=== PATIENT | female | born 1960 | race Caucasian/White ===

== ENCOUNTER → 2020-12-11 | Outpatient (CLI) | payer BC, OTHER ==
[~2020-12-11] MED LIST: FISH OIL 1,0001 EACH PO; IBUPROFEN600 MG PO; MAG GLYCINATE100 MG PO; MULTIVITAMINS1 EAC1 PO; PROBIOTIC1 EAC1 PO; PROTANDIM PO; VITAMIN D35000 UNIT PO; ZOFRAN4 MG PO
[2020-12-11 08:28] LABS: HEMOGLOBIN 13.9 gm/dl (12.3-15.3); RED BLOOD COUNT 4.6 M/UL (4.00-5.10)
[2020-12-11 08:56] LABS: BUN/CREATININE RATIO 18 (0-10)
[2020-12-12 08:14] LABS: ESTRADIOL <5.0 pg/mL (.); PROGESTERONE 0.2 ng/mL (.); VITAMIN D, 25-HYDROXY 67.8 ng/mL (30.0-100.0)
[2020-12-12 18:08] LABS: SARS COV-2 IGM AB Negative (Negative)
[2020-12-13 02:09] LABS: SARS COV-2 IGG AB Negative (Negative)
[2020-12-13 12:14] LABS: CHOLESTEROL, TOTAL 208 mg/dL (100-199); HDL SIZE 9.5 nm (>=9.2); HDL-C 69 mg/dL (>39); HDL-P (TOTAL) 39.1 umol/L (>=30.5); LARGE HDL-P 10.9 umol/L (>=4.8); LARGE VLDL-P 1.7 nmol/L (<=2.7); LDL SIZE 21.5 nm (>20.5); LDL SIZE 21.5 nm (>=20.8); LDL-C 125 mg/dL (0-99); LDL-P 1542 nmol/L (<1000); LP-IR SCORE 30 (<=45); SMALL LDL-P 507 nmol/L (<=527); TRIGLYCERIDES 80 mg/dL (0-149); VLDL SIZE 52.8 nm (<=46.6)
[2020-12-13 14:14] LABS: TESTOSTERONE, SERUM 5 ng/dL (3-41)
[2020-12-13 16:14] LABS: SARS COV-2 IGA AB Negative (Negative)
== END ==
LOC: LAB 07:11
PROVIDERS: Nurse Practitioner Family
DX: Z13.1 Encounter for screening for diabetes mellitus (principal); Z13.220 Encounter for screening for lipoid disorders; E78.00 Pure hypercholesterolemia, unspecified; R78.79 Finding of abnormal level of heavy metals in blood; R79.0 Abnormal level of blood mineral; K59.00 Constipation, unspecified; R53.83 Other fatigue; E72.10 Disorders of sulfur-bearing amino-acid metabolism, unspecified; E34.9 Endocrine disorder, unspecified; E53.8 Deficiency of other specified B group vitamins; E55.9 Vitamin D deficiency, unspecified; Z79.890 Hormone replacement therapy; Z01.84 Encounter for antibody response examination
CPT/HCPCS: 36415; 80053; 80061; 82175; 82300; 82607; 82670; 82679; 83036; 83655; 83825; 84144; 84207; 84402; 84403; 84439; 84443; 84481; 84630; 85027; 86140; 86769

== ENCOUNTER → 2021-01-26 | Outpatient (CLI) | payer BC, OTHER ==
[2021-01-27 13:09] LABS: INSULIN 2.6 uIU/mL (2.6-24.9)
[2021-02-05 13:09] LABS: OMEGA-3 TOTAL 6.7 % by wt (.); OMEGA-6/OMEGA-3 RATIO 6.4 (3.7-14.4)
== END ==
LOC: LAB 06:44
PROVIDERS: Nurse Practitioner Family
DX: D68.59 Other primary thrombophilia (principal); E78.00 Pure hypercholesterolemia, unspecified; R73.9 Hyperglycemia, unspecified; C44.90 Unspecified malignant neoplasm of skin, unspecified; Z82.49 Family history of ischemic heart disease and other diseases of the circulatory system
CPT/HCPCS: 36415; 82542; 82728; 85384; 85652; 86141

== ENCOUNTER → 2021-05-21 | Outpatient (CLI) | payer BC | LOC: EROP 09:46 | DX: Z01.812 Encounter for preprocedural laboratory examination (principal); U07.1 COVID-19 | CPT/HCPCS: U0002 ==

== ENCOUNTER 2021-06-01 10:07 | Emergency (ER) | payer BC ==
[~2021-06-01 10:07] MED LIST changes: -IBUPROFEN600 MG PO; -ZOFRAN4 MG PO
[2021-06-01 13:21] LABS: HEMOGLOBIN 13.1 gm/dl (12.3-15.3); RED BLOOD COUNT 4.23 M/UL (4.00-5.10); WHITE BLOOD COUNT 10.4 K/UL (4.5-11.0)
[2021-06-01 13:41] LABS: BUN/CREATININE RATIO 18 (0-10)
[2021-06-01] MEDS ORDERED: ZOFRAN4 MG PO (16:03)
[2021-06-01] MEDS ORDERED: IBUPROFEN600 MG PO (16:03)
== END 2021-06-01 16:17 | disposition home or self-care (01) ==
LOC: ER1 10:07
PROVIDERS: Physician Assistant
DX: R19.7 Diarrhea, unspecified (principal); R51.9 Headache, unspecified; R11.0 Nausea
CPT/HCPCS: 80053; 85025; 96374; 96375; 99284; J1885; J2405; J7030

== ENCOUNTER → 2022-06-17 | Outpatient (CLI) | payer BC ==
[~2022-06-17] MED LIST changes: +IBUPROFEN600 MG PO; +ZOFRAN4 MG PO
[2022-06-17 07:32] LABS: BUN/CREATININE RATIO 34 (0-10)
[2022-06-17 07:39] LABS: HEMOGLOBIN 13.6 gm/dl (12.3-15.3); RED BLOOD COUNT 4.46 M/UL (4.00-5.10); WHITE BLOOD COUNT 4.1 K/UL (4.5-11.0)
== END ==
LOC: LAB 06:42
PROVIDERS: Nurse Practitioner Family
DX: Z00.00 Encounter for general adult medical examination without abnormal findings (principal); Z13.220 Encounter for screening for lipoid disorders; R10.84 Generalized abdominal pain; R11.0 Nausea; M79.10 Myalgia, unspecified site; R53.83 Other fatigue; R10.13 Epigastric pain; Z91.018 Allergy to other foods
CPT/HCPCS: 36415; 80053; 80061; 82607; 83036; 84439; 84443; 85025